=== PATIENT | female | born 1965 | race Caucasian/White ===

== ENCOUNTER 2017-02-06 12:16 | Emergency (ER) | payer MEDICAID ==
[2017-02-06 13:35] LABS: RBC URINE 1 /hpf (0-3); URINE BILIRUBIN NEGATIVE (NEGATIVE); URINE BLOOD NEGATIVE (NEGATIVE); URINE COLOR Yellow (YELLOW); URINE GLUCOSE (UA) 2+ mg/dL (Normal); URINE KETONE TRACE mg/dL (NEGATIVE); URINE LEUKOCYTE ESTERASE NEG Leu/uL (Negative); URINE PROTEIN NEGATIVE (NEGATIVE); URINE UROBILINOGEN NORMAL mg/dL (0.2-1.0); WBC URINE 2 /hpf (0-5)
--- NOTE | 2017-02-06 14:19 | C.PDOC ---
History Of Present Illness 51 year old female with a history of diabetes and kidney stones presents to the ED with complaints of right sided abdominal pain for one day that radiates from the RUQ to the right groin. She notes taking two Aleves yesterday with mild relief. Patient denies nausea, vomiting, fever, or chills. Time Seen by Provider: 02/06/17 13:19 Chief Complaint (Nursing): Abdominal Pain History Per: Patient History/Exam Limitations: no limitations Onset/Duration Of Symptoms: Days (1 day ) Current Symptoms Are (Timing): Still Present Location Of Pain/Discomfort: RUQ, RLQ Radiation Of Pain To:: Other (right groin area ) Quality Of Discomfort: "Pain" Associated Symptoms: denies: Fever, Chills, Nausea, Vomiting, Diarrhea Recent travel outside of the [place]: No Additional History Per: Prior Records Abnormal Vaginal Bleeding: No Past Medical History Reviewed: Historical Data, Nursing Documentation, Vital Signs Vital Signs: Last Vital Signs Temp 98.4 F 02/06/17 12:21 Pulse 80 02/06/17 12:21 Resp 18 02/06/17 12:21 BP 143/86 02/06/17 12:21 Pulse Ox 100 02/06/17 16:09 - Medical History PMH: HTN Family History: States: Unknown Family Hx - Social History Hx Tobacco Use: No Hx Alcohol Use: No Hx Substance Use: No - Immunization History Hx Tetanus Toxoid Vaccination: No Hx Influenza Vaccination: No Hx Pneumococcal Vaccination: No Review Of Systems Constitutional: Negative for: Fever, Chills Cardiovascular: Negative for: Chest Pain Respiratory: Negative for: Shortness of Breath Gastrointestinal: Positive for: Abdominal Pain. Negative for: Nausea, Vomiting , Diarrhea Genitourinary: Negative for: Dysuria, Hematuria Physical Exam - Physical Exam Appears: Well (well appearing and well nourished ), Non-toxic, No Acute Distress Skin: Warm, Dry Head: Atraumatic Eye(s): bilateral: Normal Inspection, EOMI Oral Mucosa: Moist Neck: Supple Chest: Symmetrical, No Deformity Cardiovascular: Rhythm Regular Respiratory: Normal Breath Sounds, No Rhonchi, No Wheezing Gastrointestinal/Abdominal: Soft, Tenderness (Right sided abdominal tenderness ) , No Distention, No Guarding, No Rebound Back: No CVA Tenderness Extremity: Normal ROM, No Tenderness Neurological/Psych: Oriented x3, Normal Speech, Normal Cognition ED Course And Treatment - Laboratory Results Result Diagrams: 02/06/17 14:39 02/06/17 14:39 O2 Sat by Pulse Oximetry: 100 (room air ) Progress Note: Labs, UA, U Pregm and stone protocol scan were ordered for evaluation. Medical Decision Making Medical Decision Making: pt found to have 7 mm stone at or in bladder; no hydronephrosis. pt to strain all urine; follow up with urology, ibuprofen for pain and flomax. Disposition Counseled Patient/Family Regarding: Studies Performed, Diagnosis, Need For Followup, Rx Given - Disposition Referrals: Brinda Morales MD [Staff Provider] - Disposition: HOME/ ROUTINE Disposition Time: 16:09 Condition: STABLE Additional Instructions: Drink a lot of fluids. Strain all urine. Keep stone when it passes and bring to urologist appointment. Follow up with urologist. Call for an appointment. Return to ER for any worse pain or any other concerns. Prescriptions: Ibuprofen [Motrin] 600 mg PO TID #30 tab Tamsulosin [Flomax] 0.4 mg PO DAILY #15 cap Instructions: How to Strain Your Urine (ED), Kidney Stones (ED) Forms: [facility] (Northern Irish), Gen Discharge Inst Irish, [facility] (Irish) - Clinical Impression Clinical Impression: Kidney stone on right side - Scribe Statement The provider has reviewed the documentation as recorded by the Scribe Azalia Gilliam All medical record entries made by the Scribe were at my direction and personally dictated by me. I have reviewed the chart and agree that the record accurately reflects my personal performance of the history, physical exam, medical decision making, and the department course for this patient. I have also personally directed, reviewed, and agree with the discharge instructions and disposition.
[2017-02-06 14:50] LABS: BASO # 0.1 K/uL (0.0-0.2); BASO % 0.8 % (0.0-2.0); EOS # 0.3 K/uL (0.0-0.7); EOS % 3.3 % (0.0-4.0); HEMATOCRIT 37.3 % (34.0-47.0); LYMPH # 2.7 K/uL (1.0-4.3); LYMPH % 27.8 % (20.0-40.0); MEAN CELL VOLUME 78.2 fL (81.0-99.0); MEAN PLATELET VOLUME 9.9 fL (7.2-11.7); MONO # 0.6 K/uL (0.0-0.8); MONO % 6.6 % (0.0-10.0); NRBC % 0.1 % (0.0-2.0); WHITE BLOOD COUNT 9.7 K/uL (4.8-10.8)
[2017-02-06 14:51] LABS: CHLORIDE 100 mmol/L (98-107); SODIUM 137 mmol/L (132-148)
[2017-02-06 14:52] LABS: POTASSIUM 4.4 mmol/L (3.6-5.2)
[2017-02-06 14:53] LABS: BILIRUBIN,TOTAL 0.7 mg/dL (0.2-1.3); GFR AFRICAN-AMERICAN > 60
[2017-02-06 14:54] LABS: ALB/GLOB RATIO 1.2 (1.0-2.1); ALKALINE PHOSPHATASE 90 U/L (38-126); ALT/SGPT 40 U/L (9-52); AST/SGOT 39 U/L (14-36); BLOOD UREA NITROGEN 10 mg/dL (7-17); CALCIUM 9.5 mg/dl (8.6-10.4); CARBON DIOXIDE 22 mmol/L (22-30); GLUCOSE,RANDOM 129 mg/dL (65-105); TOTAL PROTEIN 7.3 g/dL (6.3-8.3)
--- NOTE | 2017-02-06 15:37 | CT ---
PROCEDURE: CT Abdomen and Pelvis without intravenous contrast HISTORY: right side ab pain. COMPARISON: None. TECHNIQUE: Without contrast.. Contrast Dose: 0 Radiation dose: Total exam DLP = 628.65 mGy-cm. This CT exam was performed using one or more of the following dose reduction techniques: Automated exposure control, adjustment of the mA and/or kV according to patient size, and/or use of iterative reconstruction technique. FINDINGS: LOWER THORAX: Unremarkable. LIVER: Normal size, contour and attenuation. No mass. No biliary dilatation. GALLBLADDER AND BILE DUCTS: Unremarkable. PANCREAS: Unremarkable. No gross lesion or ductal dilatation. SPLEEN: Unremarkable. ADRENALS: Unremarkable. No mass. KIDNEYS AND URETERS: Multiple bilateral punctate nonobstructing renal calculi. No renal mass. No hydronephrosis. No hydroureter or ureteral calculus. VASCULATURE: Unremarkable. No aortic aneurysm. BOWEL: Unremarkable. No obstruction. No gross mural thickening. APPENDIX: Unremarkable. Normal appendix. PERITONEUM: Unremarkable. No free fluid. No free air. LYMPH NODES: Unremarkable. No enlarged lymph nodes. BLADDER: There is a 7 mm calculus at the level of the right ureterovesical junction, possibly dependent at the bladder base but not obstructing the right ureter, in the absence of hydroureter. REPRODUCTIVE: Probable posterior subserosal uterine fibroid, 2.5 cm. BONES: No acute fracture. OTHER FINDINGS: None. IMPRESSION: Multiple punctate bilateral nonobstructing renal calculi. 7 mm calculus in the bladder at the level of the right ureterovesical junction, although nonobstructing. This may reside within the ureteral orifice or may be freely dependent on the bladder floor. Minor findings as above.
[2017-02-06 16:26] VITALS: BP 138/88; PULSE 77; RESP 16; TEMP 98.3
[2017-02-07 19:25] VITALS: O2SAT 100
== END 2017-02-06 16:25 | disposition home or self-care (01) ==
LOC: C.ER 12:16
DX: N20.0 Calculus of kidney (principal)

== ENCOUNTER 2018-10-19 08:58 | Outpatient (CLI) | payer MEDICAID | END 2018-10-19 08:59 | disposition home or self-care (01) | LOC: C.LAB 08:58 | DX: Z01.84 Encounter for antibody response examination (principal); E11.9 Type 2 diabetes mellitus without complications; R42 Dizziness and giddiness; R06.02 Shortness of breath ==